=== PATIENT | female | born 1965 | race Caucasian/White ===

== ENCOUNTER 2017-02-05 11:01 | Emergency (ER) | payer BC ==
[~2017-02-05] VITALS: Ht 172.7 cm; Wt 107.5 kg
[~2017-02-05 11:01] MED LIST: DIPH25TA24 PO; FLUT0.15 NAE; IBUP-1428 PO
[2017-02-05 11:09] VITALS: TEMP 36.7; Ht 172.7 cm; Wt 107.5 kg
[2017-02-05 11:26] VITALS: O2SAT 98
[2017-02-05] MEDS ORDERED: CETI10TA73 PO (12:00)
[2017-02-05] MEDS ORDERED: DIPH-384 PO (12:00)
[2017-02-05 12:30] LABS: BASO % 0.5 %; BASO ABS # 0.04 K/uL (0-0.2); COMPLETE YES; EOS % 1.7 %; HEMATOCRIT 38.6 % (37-47); IG% 0.1 %; LYMPH % 36.2 %; LYMPH ABS # 2.76 K/uL (1.2-3.4); MEAN CORPUSCULAR HEMOGLOBIN 30.4 pg (25-34); MEAN CORPUSCULAR HGB CONC 33.4 g/dl (32-36); MONO % 7.2 %; NEUT % 54.3 %; PLATELET COUNT 226 K/uL (130-400); RED BLOOD COUNT 4.24 M/uL (4.2-5.4); WHITE BLOOD COUNT 7.62 K/uL (4.8-10.8)
[2017-02-05 12:47] LABS: ALT/SGPT 24 U/L (12-78); BLOOD UREA NITROGEN 15 mg/dl (7-18); BUN/CREATININE RATIO 18.6 (10-20); CALCIUM 9.1 mg/dl (8.5-10.1); CARBON DIOXIDE 25 mmol/L (21-32); CHLORIDE 106 mmol/L (98-107); CREATININE 0.81 mg/dl (0.60-1.20); GLUCOSE 97 mg/dl (70-99); POTASSIUM 3.8 mmol/L (3.5-5.1); SODIUM 139 mmol/L (136-145)
--- NOTE | 2017-02-05 12:47 | EMERGENCY ROOM VISIT NOTE ---
History First contact with patient: 11:14 Chief Complaint: CARDIAC ASSESSMENT Stated Complaint: HEART PALPITATIONS, SHAKING, UNABLE TO STAND Nursing Triage Summary: pt was sitting at desk this am and felt like" i swallowed a lg pill and it got stuck" had siscomfort for a "minute" pt got up and walked around, was upset, stated felt numbness in her hand and then felt faint. pt denies pain at this time History of Present Illness The patient is a 51 year old female who presents to the Emergency Room with complaints of chest pain earlier this morning. The patient states she was sitting in her desk, when she began experiencing pain in the middle and the right side of her chest. She describes the pain as "like a pill got stuck". She states the pain seemed to be pulsing and she experienced a rapid heart rate. She states she was able to breathe through it and the pain improved after approximately 1 minute. She states she went for a walk down the [place] and attempt to calm herself, but about skilled nursing down the hallway, she began feeling shaky and lightheaded. She states she went to sit back down at her desk, and her hands became tingly. She decided at that point to come here to the emergency department for evaluation. She describes currently feeling very anxious, worse because her blood pressure was elevated in triage. She denies any history or family history of hypertension, heart attack, or stroke. She denies any previous chest pain or dyspnea. She denies any history of DVT or PE. Patient denies any dyspnea, abdominal pain, recent illness, nausea, vomiting, congestion, or other concerning symptoms. She is not experiencing any pain at this time, however her hands continued tingling. Her last menstrual period was last November or December, and she states they have been very sporadic for the past 1-2 years. She does not normally see a PCP, but did have a Pap smear in November. Her last lab work was approximally 4 years ago and was normal. The patient has never had an EKG. She states other than being slightly overweight and having seasonal allergies, she has no significant medical problems and is relatively healthy. This morning at approximately 645, the patient did take her Flonase, Zyrtec, Benadryl, however this is normal. She states over the past 24 hours, the only difference in her daily activity was moving a very heavy wood stove to the basement. She states this is proximally 250 pounds and her had her moved it last night. She states this is more physical activity than she would normally participate in. Review of Systems A complete 10 point review of systems was reviewed with the patient with pertinent positives and negatives as per history of present illness. All else were negative. Social History Smoking Status: Never Smoker Smokeless Tobacco Use: No Alcohol Use: none Drug Use: none Marital Status: Housing Status: lives with family Occupation Status: employed Current/Historical Medications Scheduled Cetirizine Hcl (All Day Allergy), 10 MG PO DAILY Diphenhydramine Hcl (Allergy), 25 MG PO DAILY Fluticasone Propionate (Nasal) (Flonase Allergy Relief), 2 SPRAYS MARYLU DAILY Scheduled PRN Ibuprofen (Motrin), 800 MG PO Q8H PRN for Headache or Pain Physical Exam Vital Signs Date Time Temp Pulse Resp B/P (MAP) Pulse Ox O2 Delivery O2 Flow Rate FiO2 02/05/17 15:32 93 20 122/77 96 Room Air 02/05/17 13:04 147/93 02/05/17 12:21 79 21 02/05/17 12:13 111/84 02/05/17 11:51 72 18 02/05/17 11:46 71 22 02/05/17 11:37 Room Air 02/05/17 11:31 74 17 111/84 100 02/05/17 11:26 98 02/05/17 11:24 93 02/05/17 11:21 132/102 02/05/17 11:09 36.7 90 20 182/101 99 Room Air Physical Exam VITALS: Vitals are noted on the nurse's note and reviewed by myself. Vital signs stable. GENERAL: This is a 51-year-old white female, in no acute distress, nondiaphoretic, well-developed well-nourished. SKIN: The skin was without rashes, erythema, edema, or bruising. There is no tenting of the skin. Capillary reflex less than 2 seconds. HEAD: Normocephalic atraumatic. EARS: External auditory canals clear, tympanic membranes pearly cabrera without erythema or effusion bilaterally. EYES: Pupils equal round and reactive to light and accommodation. Conjunctivae without injection, sclerae without icterus. Extraocular movements intact. NOSE: Patent, turbinates without inflammation or discharge. No sinus tenderness. MOUTH: Mucous membranes moist. Tonsils are not enlarged. Pharynx without erythema or exudate. Uvula midline. Airway patent. Tongue does not deviate. NECK: Supple without nuchal rigidity. No lymphadenopathy. No thyromegaly. Cervical spine is nontender. No JVD. HEART: Regular rate and rhythm without murmurs gallops or rubs. LUNGS: Clear to auscultation bilaterally without wheezes, rales or rhonchi. No dullness to percussion. No retractions or accessory muscle use. ABDOMEN: Positive bowel sounds x 4. Normal tympanic percussion. Soft, nontender, without masses or organomegaly. Soni sign negative. No guarding or rebound tenderness. MUSCULOSKELETAL: No muscle atrophy, erythema, or edema noted. Full range of motion without joint tenderness in all extremities. No tenderness to palpation. Normal gait. Strength 5/5 throughout. NEURO: Patient was alert and oriented to person place and time. Normal sensation to light and sharp touch. Deep tendon reflexes 2+ throughout. No focal neurological deficits. Medical Decision & Procedures ER Provider Diagnostic Interpretation: CXR: CHEST 2 VIEWS ROUTINE CLINICAL HISTORY: Difficult chest pain. Palpitations. COMPARISON STUDY: No previous studies for comparison. FINDINGS: The cardiac and mediastinal contours are normal. There is no evidence of focal pulmonary consolidation. There is no evidence of failure. No pleural effusions are visualized.[ IMPRESSION: No active disease in the chest. Electronically signed by: Michael Peter M.D. 02/05/2017 12:49 PM Dictated Date/Time: 02/05/2017 12:49 PM LABS: CBC without acidosis, anemia, thrombocytopenia. CMP did not show any renal, hepatic, or electrolyte abnormalities. Troponin was negative. CK-MB was negative TSH was normal. Urinalysis appeared contaminated, however did not show any significant abnormalities. Stress Echocardiogram: Please see Dr. Patterson's report regarding results. Laboratory Results 02/05/17 11:47 Red Blood Count 4.24, Mean Corpuscular Volume 91.0, Mean Corpuscular Hemoglobin 30.4, Mean Corpuscular Hemoglobin Concent 33.4, Mean Platelet Volume 11.0, Neutrophils (%) (Auto) 54.3, Lymphocytes (%) (Auto) 36.2, Monocytes (%) (Auto) 7.2, Eosinophils (%) (Auto) 1.7, Basophils (%) (Auto) 0.5, Neutrophils # (Auto) 4.13, Lymphocytes # (Auto) 2.76, Monocytes # (Auto) 0.55, Eosinophils # (Auto) 0.13, Basophils # (Auto) 0.04 02/05/17 11:47 Test 02/05/17 11:36 02/05/17 11:47 02/05/17 12:25 Creatine Kinase MB Ratio (0-3.0) White Blood Count 7.62 K/uL (4.8-10.8) Red Blood Count 4.24 M/uL (4.2-5.4) Hemoglobin 12.9 g/dL (12.0-16.0) Hematocrit 38.6 % (37-47) Mean Corpuscular Volume 91.0 fL (80-100) Mean Corpuscular Hemoglobin 30.4 pg (25-34) Mean Corpuscular Hemoglobin Concent 33.4 g/dl (32-36) Platelet Count 226 K/uL (130-400) Mean Platelet Volume 11.0 fL (7.4-10.4) Neutrophils (%) (Auto) 54.3 % Lymphocytes (%) (Auto) 36.2 % Monocytes (%) (Auto) 7.2 % Eosinophils (%) (Auto) 1.7 % Basophils (%) (Auto) 0.5 % Neutrophils # (Auto) 4.13 K/uL (1.4-6.5) Lymphocytes # (Auto) 2.76 K/uL (1.2-3.4) Monocytes # (Auto) 0.55 K/uL (0.11-0.59) Eosinophils # (Auto) 0.13 K/uL (0-0.5) Basophils # (Auto) 0.04 K/uL (0-0.2) RDW Standard Deviation 41.7 fL (36.4-46.3) RDW Coefficient of Variation 12.6 % (11.5-14.5) Immature Granulocyte % (Auto) 0.1 % Immature Granulocyte # (Auto) 0.01 K/uL (0.00-0.02) D-Dimer 360 ug/L FEU (0-500) Anion Gap 8.0 mmol/L (3-11) Est Creatinine Clear Calc Drug Dose 105.5 ml/min Estimated GFR () 97.5 Estimated GFR (Non- 84.1 BUN/Creatinine Ratio 18.6 (10-20) Calcium Level 9.1 mg/dl (8.5-10.1) Total Bilirubin 0.4 mg/dl (0.2-1) Aspartate Amino Transf (AST/SGOT) 17 U/L (15-37) Alanine Aminotransferase (ALT/SGPT) 24 U/L (12-78) Alkaline Phosphatase 89 U/L (45-117) Creatine Kinase MB 1.8 ng/ml (0.5-3.6) Troponin I < 0.015 ng/ml (0-0.045) Total Protein 7.3 gm/dl (6.4-8.2) Albumin 3.7 gm/dl (3.4-5.0) Globulin 3.6 gm/dl (2.5-4.0) Albumin/Globulin Ratio 1.0 (0.9-2) Lipase 150 U/L (73-393) Thyroid Stimulating Hormone (TSH) 1.590 uIu/ml (0.300-4.500) Urine Color YELLOW Urine Appearance CLEAR (CLEAR) Urine pH 6.0 (4.5-7.5) Urine Specific [place] 1.011 (1.000-1.030) Urine Protein NEG (NEG) Urine Glucose (UA) NEG (NEG) Urine Ketones NEG (NEG) Urine Occult Blood NEG (NEG) Urine Nitrite NEG (NEG) Urine Bilirubin NEG (NEG) Urine Urobilinogen NEG (NEG) Urine Leukocyte Esterase TRACE (NEG) Urine WBC (Auto) 1-5 /hpf (0-5) Urine RBC (Auto) 0-4 /hpf (0-4) Urine Hyaline Casts (Auto) 1-5 /lpf (0-5) Urine Epithelial Cells (Auto) >30 /lpf (0-5) Urine Bacteria (Auto) 2+ (NEG) Urine Test NEG (NEG) Medications Administered Medications (Trade) Dose Ordered Sig/Davida Route Start Time Stop Time Status Last Admin Dose Admin Perflutren Lipid Microsphere (Definity) 2 ml ONE ONCE IV 02/05/17 15:05 02/05/17 15:51 DC 02/05/17 15:05 2 ML Medical Decision This is a 51-year-old female who presented complaining of chest pain and dyspnea. The symptoms only lasted approximately 1 minute prior to improving. The patient have any risk factors, nor she had any cardiac or family history of cardiac disease. The patient's examination is benign, however she did have ST depression in the anterior lateral leads on EKG. I did consult with Dr. Patterson who recommended a stress echocardiogram due to the EKG changes. The patient did not have any prior EKGs to compare. Stress echo was performed and was negative. The patient's other examinations/ studies were negative and the patient was feeling significantly improved throughout her stay. As discussed at bedside, I feel that we have successfully ruled out cardiac or pulmonary etiology of the patient's symptoms. I suspect slight dehydration or viral etiology, and encouraged the patient to stay well-hydrated and follow-up outpatient with her PCP. Differential diagnosis: AMI, ACS, PE, pneumonia, bronchitis, CHF, COPD, Aortic Aneurysm, angina, dehydration, viral etiology, malignancy, and others. Medication Reconcilliation Current Medication List: was personally reviewed by me Blood Pressure Screening Patient's blood pressure: Normal blood pressure Impression Primary Impression: Chest pain Departure Information Dispostion Home / Self-Care Condition GOOD Referrals Palma Goldman M.D. (PCP) Patient Instructions ED Chest Pain NonCardiac, My [facility] Additional Instructions You were seen in the emergency department today for chest pain. Cardiac etiology was ruled out with labs and stress echo. As discussed, your EKG did show some ST depression in the anterior and lateral leads, however, stress echo was negative for cardiac etiology. Please follow up with your PCP for further evaluation and recheck. You should have yearly lab work completed. Return to the emergency department for worsening symptoms, or symptoms which do not improve within a few minutes. These would include chest pain, difficulty breathing, chest pain on exertion, chest pressure, dizziness, confusion, syncope , or others. Work Instructions Return To Work: 1 day Problem Qualifiers Primary Impression: Chest pain Chest pain type: unspecified Qualified Codes: R07.9 - Chest pain, unspecified
--- NOTE | 2017-02-05 12:51 | DIAGNOSTIC IMAGING REPORT ---
CHEST 2 VIEWS ROUTINE CLINICAL HISTORY: Difficult chest pain. Palpitations. COMPARISON STUDY: No previous studies for comparison. FINDINGS: The cardiac and mediastinal contours are normal. There is no evidence of focal pulmonary consolidation. There is no evidence of failure. No pleural effusions are visualized.[ IMPRESSION: No active disease in the chest. Electronically signed by: Michael Peter M.D. 02/05/2017 12:49 PM Dictated Date/Time: 02/05/2017 12:49 PM
[2017-02-05 12:58] LABS: ALKALINE PHOSPHATASE 89 U/L (45-117); AST/SGOT 17 U/L (15-37)
[2017-02-05 13:15] LABS: URINE APPEARANCE CLEAR (CLEAR); URINE BILIRUBIN NEG (NEG); URINE COLOR YELLOW; URINE EPITHELIAL CELL AUTO >30 /lpf (0-5); URINE NITRITE NEG (NEG); URINE SPECIFIC GRAVITY 1.011 (1.000-1.030); UROBILINOGEN NEG (NEG); ZZUR CULT IF INDIC CLEAN CATCH YES
[2017-02-05 13:23] LABS: MANUAL MICROSCOPIC REQUIRED? NO; REVIEW REQ? NO
[2017-02-05] MEDS ORDERED: PERFLUTREN LIPID MICROSPHERE (DEFINITY) IV ONE (15:05)
[2017-02-05 15:32] VITALS: BP 122/77; PULSE 93; O2SAT 96
--- NOTE | 2017-02-05 15:46 | EXERCISE STRESS ECHO ---
*NOTICE TO RECEIVING DEMOCRAT AGENCY This information is strictly Confidential and protected under [place] law. [place] law prohibits you from making any further disclosure of this information unless further disclosure is expressly permitted by the written consent of the person to whom it pertains or is authorized by law. A general authorization for the release of medical or other information is not sufficient for this purpose. Hospital accepts no responsibility if the information is made available to any other person, INCLUDING THE PATIENT. Interpretation Summary * The study was technically adequate. * Name: RAQULE MARIE Study Date: 02/05/2017 01:58 PM BP: 119/69 mmHg Patient Location: [facility] HR: 77 : 1965 (M/d/yyyy) Gender: Female Height: 68 in Age: 51 yrs Ethnicity: [place] Weight: 236 lb Ordering Physician: Leticia Evans Referring Physician: Self, Referred Performed By: Fara Lay RDCS Reason For Study: CHEST PAIN BSA: 2.2 m2 * -- Conclusions -- * STRESS STUDY: * Normal exercise stress echocardiogram. * No echocardiographic or EKG evidence of myocardial ischemia having achieved heart rate adequate for diagnostic purposes. * The stress EKG was negative for ischemia. * Rare occasional PVCs were noted. * There was an accelerated heart rate response to exercise. * The blood pressure response to exercise was normal. * The exercise capacity was below average, seemingly due to deconditioning. * RESTING STUDY: * There is normal left ventricular wall thickness. * There is trace tricuspid regurgitation. * Doppler findings do not suggest pulmonary hypertension. Procedure Details * ECHOEX, CPT #60184 * ECHO DOPPLER, CPT #[id number] * ECHO COLOR FLOW, CPT #01967 * A contrast injection of Definity was performed to improve assessment of LV function. * Contrast was injected into an intravenous site in the right arm. * One vial of Definity ultrasound contrast was diluted in normal saline to a total volume of 10 ml. A total of '4' ml of solution was administered during imaging. * Lot # [id number] of Definity utilized for procedure. * Expiration date JAN 30. * The attending nurse who injected the contrast agent was ALEXIS LUJAN RN. Left Ventricle * The left ventricle is normal in size. * There is normal left ventricular wall thickness. * Left ventricular systolic function is normal. * Ejection Fraction = 60-65%. * Resting wall motion: Normal. Stress wall motion: Appropriate increase in Left ventricular systolic function and decrease in cavity size. No stress induced segmental wall motion abnormalities. Right Ventricle * The right ventricle is normal in size and function. Atria * The left atrial size is normal. * Right atrial size is normal. * No ASD detected; PFO is not assessed. Mitral Valve * The mitral valve is normal. * There is no mitral valve stenosis. * There is trace mitral regurgitation. Tricuspid Valve * The tricuspid valve is normal. * There is no tricuspid stenosis. * There is trace tricuspid regurgitation. * Doppler findings do not suggest pulmonary hypertension. Aortic Valve * The aortic valve is trileaflet. * No hemodynamically significant valvular aortic stenosis. * No aortic regurgitation is present. Pulmonic Valve * The pulmonic valve is not well visualized. Great Vessels * The aortic root is normal size. Pericardium * There is no pericardial effusion. Stress Parameters * The baseline EKG reveals sinsus rhythm at 85 bpm with mild non specific ST changes in the lateral leads. * The stress EKG was negative for ischemia. Rare occasional PVCs were noted. There was an accelerated heart rate response to exercise. * The stress portion of this study was personally supervised by the undersigned interpreting physician. * Rest heart rate was '77' BPM. * Rest blood pressure was '119/69' * Maximum heart rate achieved was 179 bpm. * Maximum heart rate was 105 % of maximum age-predicted heart rate. * Maximum blood pressure was '166/95' * Total exercise time was '3:00' * Maximum exercise MET level achieved was '4.60' METS * Maximum treadmill speed was '1.70' miles per hour. * Maximum treadmill elevation was '10.00'% grade. * Exercise was terminated due to 'FATIGUE, ACHIEVING TARGET HR' Left Ventricular Diastolic Function * The LV diastolic function is normal. MMode 2D Measurements and Calculations IVSd 0.79 cm IVSs 1.3 cm LVIDd 4.6 cm LVIDs 3.0 cm LVPWd 0.92 cm LVPWs 1.5 cm IVS/LVPW 0.86 FS 35.9 % EDV(Teich) 97.5 ml ESV(Teich) 33.6 ml EF(Teich) 65.5 % EDV(cubed) 97.5 ml ESV(cubed) 25.7 ml EF(cubed) 73.6 % % IVS thick 64.2 % % LVPW thick 68.3 % LV mass(C)d 128.0 grams LV mass(C)dI 58.4 grams/m\S\2 LV mass(C)s 140.2 grams LV mass(C)sI 63.9 grams/m\S\2 SV(Teich) 63.8 ml SI(Teich) 29.1 ml/m\S\2 SV(cubed) 71.8 ml SI(cubed) 32.7 ml/m\S\2 Ao root diam 3.0 cm Ao root area 7.0 cm\S\2 LA dimension 3.5 cm LA/Ao 1.2 LVAd ap4 33.4 cm\S\2 LVLd ap4 8.9 cm EDV(MOD-sp4) 106.4 ml EDV(sp4-el) 107.0 ml LVAs ap4 16.8 cm\S\2 LVLs ap4 6.5 cm ESV(MOD-sp4) 36.3 ml ESV(sp4-el) 36.8 ml EF(MOD-sp4) 65.9 % EF(sp4-el) 65.6 % LVAd ap2 30.3 cm\S\2 LVLd ap2 8.4 cm EDV(MOD-sp2) 93.9 ml EDV(sp2-el) 93.1 ml LVAs ap2 15.8 cm\S\2 LVLs ap2 6.4 cm ESV(MOD-sp2) 33.5 ml ESV(sp2-el) 33.2 ml EF(MOD-sp2) 64.3 % EF(sp2-el) 64.4 % LVLd %diff -5.54 % EDV(MOD-bp) 102.4 ml LVLs %diff -1.62 % ESV(MOD-bp) 35.0 ml EF(MOD-bp) 65.8 % SV(MOD-sp4) 70.2 ml SI(MOD-sp4) 32.0 ml/m\S\2 SV(MOD-sp2) 60.4 ml SI(MOD-sp2) 27.5 ml/m\S\2 SV(MOD-bp) 67.4 ml SI(MOD-bp) 30.7 ml/m\S\2 SV(sp4-el) 70.3 ml SI(sp4-el) 32.0 ml/m\S\2 SV(sp2-el) 60.0 ml SI(sp2-el) 27.3 ml/m\S\2 Doppler Measurements and Calculations MV E max olinda 95.1 cm/sec MV A max olinda 76.6 cm/sec MV E/A 1.2 MV dec time 0.26 sec Ao V2 max 168.3 cm/sec Ao max PG 11.3 mmHg Ao max PG (full) 5.2 mmHg LV V1 max PG 6.2 mmHg LV V1 max 124.3 cm/sec TR max olinda 230.8 cm/sec
== END 2017-02-05 15:50 | disposition home or self-care (01) ==
LOC: C.EDB 11:02
DX: R07.9 Chest pain, unspecified (principal); R06.00 Dyspnea, unspecified; R42 Dizziness and giddiness; R20.2 Paresthesia of skin; Z79.899 Other long term (current) drug therapy